=== PATIENT | female | born 1990 | race Caucasian/White ===

== ENCOUNTER 2023-11-24 10:09 | Inpatient (IN) ==
[2023-11-24] MEDS ORDERED: Nalbuphine 10 MG/ML 1 ML VIAL IV PRN (10:35)
[2023-11-24] MEDS ORDERED: Prochlorperazine 5 mg/ml 2 ml VIAL (10 mg) IV PRN (10:35)
[2023-11-24] MEDS: Buffered Lidocaine 1% SYRIN 1 ml INTRADERM ONE (11:51)
[2023-11-24] MEDS: Lactated Ringers 1000 ml BAG 1,000 ML IV SCH (11:51)
[2023-11-24] MEDS: miSOPROStol 100 mcg TAB PO ONE ×2 (12:30→21:28)
[2023-11-24] MEDS: Penicillin G Potassium IV 5,000,000 UNITS in NS 0.9% 100 ml BAG 100 ML IVPB ONE (12:30)
[2023-11-24 12:41] LABS: ABS Lymphocytes 1.8 10^3/uL (1.0-4.8); ABS Monocytes 0.7 10^3/uL (0.0-0.9); ABS Neutrophils 9.4 10^3/uL (1.5-7.6); Eosinophil % 0.4 %; Hematocrit 31.9 % (35-45); Hemoglobin 10.4 g/dL (11.5-14.3); Lymphocyte % 14.9 %; Mean Corpuscular Hemoglobin 25.3 pg (27-33); Mean Corpuscular Hgb Conc 32.4 g/dL (31-36); Mean Corpuscular Volume 78.1 fL (80-97); Mean Platelet Volume 9.3 fL (7.5-11.2); Platelet Count 238 10^3/uL (150-450); Red Blood Count 4.09 10^6/uL (3.63-4.92); Red Cell Distribution Width 14.6 % (12-17)
[2023-11-24 13:28] LABS: Urine Benzodiazepine Screen None Detected (None Detect); Urine Cannabinoids Screen None Detected (None Detect); Urine Opiates Screen None Detected (None Detect)
[2023-11-24 13:32] LABS: Albumin 3.5 g/dL (3.2-5.2); Albumin/Globulin Ratio 1.5 (1-3); Calcium 9.4 mg/dL (8.6-10.3); Creatinine, Serum 0.54 mg/dL (0.51-0.95); Globulin 2.3 g/dL (2-4); Total Bilirubin 0.4 mg/dL (0.2-1.0); Total Protein 5.8 g/dL (6.4-8.9); eGFR CKD-EPI 123.1 (>60)
[2023-11-24] MEDS: Penicillin G Potassium IV 3,000,000 UNITS in NS 0.9% 100 ml BAG 100 ML IVPB SCH ×2 (17:20)
[2023-11-25] MEDS: miSOPROStol 100 mcg TAB PO ONE ×2 (03:07→07:37)
[2023-11-25] MEDS: Lidocaine 1% VIAL 10 MG/ML 30 ML VIAL INJ PRN (17:10)
[2023-11-25] MEDS ORDERED: Witch Hazel PAD JAR TOPICAL PRN (17:48)
[2023-11-25] MEDS ORDERED: Dibucaine 1% OINT 28.35 GM TUBE PR PRN (17:48)
[2023-11-25] MEDS ORDERED: Polyethylene Glycol 3350 17 GM PACKET PO PRN (17:48)
[2023-11-25] MEDS: Oxytocin 10 UNITS/ML 1 ML VIAL IM ONE (18:14)
[2023-11-25] MEDS: Lactated Ringers 1000 ml BAG 1,000 ML IV ONE (18:15)
[2023-11-26 06:44] LABS: ABS Basophils 0.1 10^3/uL (0.0-0.1); ABS Lymphocytes 2.3 10^3/uL (1.0-4.8); ABS Neutrophils 12.7 10^3/uL (1.5-7.6); ABS Nucleated RBC 0.01 10^3/ul; Eosinophil % 0.2 %; Hematocrit 29.9 % (35-45); Hemoglobin 9.9 g/dL (11.5-14.3); Lymphocyte % 14.5 %; Mean Corpuscular Hgb Conc 33.2 g/dL (31-36); Mean Corpuscular Volume 78.5 fL (80-97); Mean Platelet Volume 9.6 fL (7.5-11.2); Nucleated Red Blood Cells % 0.1 %/100WBC (0.0-0.8); Platelet Count 213 10^3/uL (150-450); Red Blood Count 3.81 10^6/uL (3.63-4.92); Red Cell Distribution Width 14.8 % (12-17); White Blood Count 16.2 10^3/uL (3.8-11.8)
[2023-11-27 08:28] VITALS: BP 142/84
== END 2023-11-27 13:12 | disposition home or self-care (01) | DRG 560 ==
LOC: MCHOBOUT 10:09 → MCHOB 10:16
PROVIDERS: ADMIT Advanced Practice Midwife; ATTEND Midwife